=== PATIENT | female | born 1990 | race Caucasian/White ===

== ENCOUNTER 2020-11-15 22:54 | Emergency (ER) | payer MEDICAID ==
--- NOTE | 2020-11-15 23:26 | EDM.PDOC ---
ED HPI GENERAL MEDICAL PROBLEM - General Chief Complaint: Cardiovascular Problem Stated Complaint: HEART PALPITATIONS Time Seen by Provider: 11/15/20 23:18 Source of Information: Reports: Patient History Limitations: Reports: No Limitations - History of Present Illness INITIAL COMMENTS - FREE TEXT/NARRATIVE: Juanis is a 30-year-old female presenting to the ED for evaluation of palpitations and tachycardia. Patient states that they started earlier this evening and make her a little short of breath. Patient also is quite anxious about the palpitations likely contributing to the increased frequency of. Patient has a history in the past of premature ventricular contractions prompting her to come in for evaluation. She denies any chest pain or nausea or vomiting. She has not had any shortness of breath or cough other than when she was excited by the palpitations. She denies any fever or chills. denies pain Pain Score (Numeric/FACES): 0 - Related Data Allergies Allergy/AdvReac Type Severity Reaction Status Date / Time No Known Allergies Allergy Verified 11/15/20 23:39 Home Meds: Home Meds NK [No Known Home Meds] 11/15/20 [History] ED ROS GENERAL - Review of Systems Review Of Systems: See Below Constitutional: Reports: No Symptoms HEENT: Reports: No Symptoms Respiratory: Reports: Shortness of Breath (Only wanting getting worked up about the palpitations) Cardiovascular: Reports: Palpitations Endocrine: Reports: No Symptoms GI/Abdominal: Reports: No Symptoms : Reports: No Symptoms Musculoskeletal: Reports: No Symptoms Skin: Reports: No Symptoms Neurological: Reports: No Symptoms Psychiatric: Reports: Anxiety Hematologic/Lymphatic: Reports: No Symptoms Immunologic: Reports: No Symptoms ED EXAM, GENERAL - Physical Exam Exam: See Below Exam Limited By: No Limitations General Appearance: Alert, No Apparent Distress, Anxious Eye Exam: Bilateral Eye: EOMI, PERRL Throat/Mouth: Normal Inspection, Normal Oropharynx, Normal Voice, No Airway Compromise Head: Atraumatic, Normocephalic Neck: Normal Inspection, Supple, Non-Tender, Full Range of Motion. No: Carotid Bruit Respiratory/Chest: No Respiratory Distress, Lungs Clear, Normal Breath Sounds Cardiovascular: Normal Peripheral Pulses, Regular Rate, Rhythm, No Murmur, Extra Beats (Occasional extrasystoles) Peripheral Pulses: 2+: Radial (L), Radial (R), Posterior Tibial (L), Posterior Tibial (R) GI/Abdominal: Normal Bowel Sounds, Soft, Non-Tender Back Exam: Normal Inspection Extremities: Normal Inspection, Normal Range of Motion, No Pedal Edema Neurological: Alert, Oriented, Normal Cognition, No Motor/Sensory Deficits Psychiatric: Normal Affect, Anxious Skin Exam: Warm, Dry, Intact, Normal Color #1 Interpretation EKG Date: 11/15/20 Time: 23:57 Rhythm: NSR (With multiple premature atrial contractions) Rate (Beats/Min): 101 [place]: Normal P-Wave: Present QRS: Normal ST-T: Normal QT: Normal Comparison: NA - No Prior EKG Course - Vital Signs Last Recorded V/S: Last Vital Signs Temp 36.6 C 11/15/20 23:14 Pulse 97 11/15/20 23:40 Resp 16 11/15/20 23:40 BP 130/72 11/15/20 23:40 Pulse Ox 98 11/15/20 23:40 - Orders/Labs/Meds Orders: Active Orders 24 hr Category Date Time Status EKG 12 Lead [EK] Routine Ther 11/15/20 23:18 Ordered Labs: Laboratory Tests 11/15/20 11/15/20 11/15/20 Range/Units 23:25 23:25 23:25 WBC 9.2 (4.5-11.0) K/uL RBC 4.70 (3.30-5.50) M/uL Hgb 13.3 (12.0-15.0) g/dL Hct 38.7 (36.0-48.0) % MCV 82 (80-98) fL MCH 28 (27-31) pg MCHC 34 (32-36) % Plt Count 215 (150-400) K/uL Neut % (Auto) 55.3 (36-66) % Lymph % (Auto) 35.9 (24-44) % [place] % (Auto) 6.7 H (2-6) % Eos % (Auto) 1.7 L (2-4) % Baso % (Auto) 0.4 (0-1) % Sodium 138 L (140-148) mmol/L Potassium 3.8 (3.6-5.2) mmol/L Chloride 104 (100-108) mmol/L Carbon Dioxide 26 (21-32) mmol/L Anion Gap 11.8 (5.0-14.0) mmol/L BUN 13 (7-18) mg/dL Creatinine 0.8 (0.6-1.0) mg/dL Est Cr Clr Drug Dosing 107.46 mL/min Estimated GFR (MDRD) > 60 (>60) Glucose 123 H (74-106) mg/dL Calcium 8.9 (8.5-10.1) mg/dL Magnesium 1.8 (1.8-2.4) mg/dL Troponin I < 0.017 (0.000-0.056) ng/mL TSH, Ultra Sensitive 3.627 (0.358-3.740) uIU/mL - Re-Assessments/Exams Free Text/Narrative Re-Assessment/Exam: 11/16/20 00:33 I reviewed the patient's labs showing a normal CBC, basic metabolic profile, TSH, and troponin I. The patient's EKG shows normal sinus rhythm with a rate of 101 bpm and frequent PACs. There is nothing worrisome in the EKG. I believe the patient's anxiety is likely driving the continued tachycardia and PACs. I reassured her that I did not see anything worrisome in her work-up. At this time she is suitable for discharge home in satisfactory condition. Departure - Departure Time of Disposition: 00:36 Disposition: Home, Self-Care 01 Clinical Impression: Premature atrial contractions, Anxiety Instructions: Premature Atrial Contraction, Managing Anxiety, Adult Referrals: Yesica Boothe PA-C [Primary Care Provider] - Forms: ED Department Discharge Care Plan Goals: Your work-up today was reassuring. There was no evidence for any worrisome findings related to the heart. You are having frequent premature atrial contractions which can occur under stress once you start to release adrenaline. Your lab work all looked normal including thyroid, electrolytes, blood count, and cardiac enzymes. Your EKG also appears normal except for a rapid heartbeat and frequent premature atrial contractions. Sepsis Event Note (ED) - Focused Exam Vital Signs: Vital Signs Temp Pulse Resp BP Pulse Ox 11/15/20 23:40 97 16 130/72 98 11/15/20 23:14 36.6 C 102 H 14 139/96 H 95 - Problem List & Annotations (1) Anxiety SNOMED Code(s): 01561670 Code(s): F41.9 - ANXIETY DISORDER, UNSPECIFIED Status: Acute Priority: High Current Visit: Yes (2) Premature atrial contractions SNOMED Code(s): 065219019 Code(s): I49.1 - ATRIAL PREMATURE DEPOLARIZATION Status: Acute Priority: High Current Visit: Yes - Problem List Review Problem List Initiated/Reviewed/Updated: Yes - My Orders Last 24 Hours: My Active Orders 11/15/20 23:18 EKG 12 Lead [EK] Routine - Assessment/Plan Last 24 Hours: My Active Orders 11/15/20 23:18 EKG 12 Lead [EK] Routine
== END 2020-11-16 00:56 | disposition home or self-care (01) ==
LOC: JP.ED 22:54
DX: I49.3 Ventricular premature depolarization (principal); F41.9 Anxiety disorder, unspecified
CPT/HCPCS: 36415; 80048; 83735; 84443; 84484; 85025; 93005; 99285-25